=== PATIENT | female | born 1975 | race Caucasian/White ===

== ENCOUNTER 2017-06-28 10:08 | Outpatient (CLI) | payer BC, SELFPAY ==
--- NOTE | 2017-06-28 11:34 | CT ---
CT OF THE ABDOMEN AND PELVIS WITHOUT CONTRAST: COMPARISON: None. HISTORY: Recurrent urinary tract infection and microscopic hematuria. Prior gastric sleeve procedure. TECHNIQUE: Multiple contiguous axial images were obtained in a CT of the abdomen and pelvis without contrast. C oronal reformats were performed. FINDINGS: The liver, gallbladder, kidneys, adrenal glands, spleen, and pancreas are unremarkable, although eval uation is limited without IV contrast. No free air, free fluid, or stranding changes are seen in the abdomen or pelvis. The large and small bowel are unremarkable. The appendix is normal. The patient is status post surg rosalba on the stomach. A tampon is seen within the vagina. The reproductive organs are otherwise unremarkable with a domina nt follicle on the left measuring 2.6 cm in greatest dimension. A small amount of air is seen within the urinary bladder which may be from recent instrumentation but could also be secondary to a urinar y tract infection. The osseous structures, visualized inferior thorax, and abdominal wall soft tissues are unremarkable. IMPRESSION: Air in the urinary bladder may be secondary to instrumentation or urinary tract infection. Correlate with history. POS: TABITHA
== END 2017-06-28 10:09 | disposition home or self-care (01) ==
LOC: CT 10:08
PROVIDERS: ATTEND Urology
DX: N39.0 Urinary tract infection, site not specified (principal); R31.29 Other microscopic hematuria
CPT/HCPCS: 74176

== ENCOUNTER 2017-12-30 10:00 | Outpatient (CLI) | payer BC ==
[2017-12-30 11:30] LABS: Hemoglobin 13.4 g/dL (12.0-16.0); Mean Corpuscular HGB CONC 32.8 g/dL (32.0-36.0); Mean Corpuscular Hemoglobin 30.1 pg (27.0-31.0); Mean Corpuscular Volume 91.8 fL (78.0-98.0); Mean Platelet Volume 8.7 fL (7.4-10.4); Platelet Count 217 thou/uL (130-400); RBC Distribution Width 11.7 % (11.5-14.5); Red Blood Cell (RBC) Count 4.46 mill/uL (4.20-5.40); White Blood Cell (WBC) Count 6.9 thou/uL (4.8-10.8)
[2017-12-30 11:32] LABS: INR-International Normal Ratio 0.9; Prothrombin Time 12.4 SEC (12.0-14.7)
[2017-12-30 11:33] LABS: PTT 29.3 SEC (22.9-36.1)
[2017-12-30 11:44] LABS: Bilirubin Negative (Negative); Blood, Urine Negative (Negative); Clarity CLEAR (Clear); Glucose, Urine (Dipstick) Negative (Negative); Leukocyte Negative (Negative); Nitrite Negative (Negative); Protein, Urine (Dipstick) Negative (Neg-Trace); Specific Gravity, Urine 1.006 (1.002-1.036); Urobilinogen 0.2 mg/dL (0.2-1.0)
[2017-12-30 11:51] LABS: Anion Gap 9 mmol/L (10-20); BUN (Urea Nitrogen) 14 mg/dL (7.0-18.7); Calc. Creatinine Clearance 0 mL/min (70-130); Calcium 9.1 mg/dL (7.8-10.44); Carbon Dioxide 28 mmol/L (22-29); Chloride 104 mmol/L (98-107); Estimated GFR-MDRD 78; Glucose 79 mg/dL (70-105); Potassium 3.6 mmol/L (3.5-5.1); Sodium 137 mmol/L (136-145)
[2017-12-30 11:59] LABS: Bacteria/HPF None Seen HPF (None Seen); Hyaline Casts/LPF 0-3 HYALINE CAST LPF (0-3 Hyaline); RBC/HPF 0-3 HPF (0-3); Squamous Epithelial None Seen HPF (0-3); WBC/HPF None Seen HPF (0-3)
== END 2017-12-30 10:01 | disposition home or self-care (01) ==
LOC: LABBT 10:00
PROVIDERS: ATTEND Urology
DX: Z01.818 Encounter for other preprocedural examination (principal); N39.0 Urinary tract infection, site not specified; R31.29 Other microscopic hematuria
CPT/HCPCS: 80048; 81001; 85027; 85610; 85730; 87086; 93005; 93010

== ENCOUNTER 2018-01-19 06:50 | Day surgery (SDC) | payer BC ==
[2017-12-30 10:15] VITALS: BMI 27.2
[2018-01-19] MEDS ORDERED: diphenhydrAMINE 50 MG/ML VIAL ONE (07:35)
[2018-01-19] MEDS ORDERED: Hydrocortisone Sod Succ/PF 100 mg/2 ml Vial ONE (07:37)
[2018-01-19] MEDS ORDERED: Levofloxacin 500 mg/D5W 100 ml Premix Bag ONE (07:37)
[2018-01-19] MEDS ORDERED: Iothalamate Meglumine 60% 50 ML VIAL FS ONE ×2 (08:59→09:02)
[2018-01-19] MEDS ORDERED: HYDROmorphone 0.5 MG/0.5 ML SYRINGE ONE (09:04)
[2018-01-19] MEDS ORDERED: Midazolam HCl 2 mg/2 ml Vial ONE (09:05)
[2018-01-19] MEDS ORDERED: Ioversol 68 % 50 ML VIAL ONE (09:30)
[2018-01-19] MEDS ORDERED: Phenazopyridine HCl 97.5 MG TABLET ONE (10:35)
--- NOTE | 2018-01-19 11:20 | RAD ---
BILATERAL RETROGRADE PYELOGRAM: HISTORY: Recurrent urinary tract infection. Microscopic hematuria. FINDINGS: A total of 9 images are presented for interpretation. These show filling of nondilated collecting sy stems. No filling defects are seen in either ureter or collecting system. IMPRESSION: Unremarkable bilateral retrograde pyelogram. POS: TPC
--- NOTE | 2018-01-19 13:06 | OP ---
PREOPERATIVE DIAGNOSES: 1. A 42-year-old female, with history of recurrent urinary tract infection. 2. History of urge incontinence. 3. History of microscopic hematuria. 4. Remote history of urinary retention requiring CIC's POSTOPERATIVE DIAGNOSES: 1. A 42-year-old female, with history of recurrent urinary tract infection. 2. History of urge incontinence. 3. History of microscopic hematuria. PROCEDURES PERFORMED: Cystoscopy, urethral calibration dilatation, bilateral retrograde pyelogram. SURGEON: Lorraine Hatch D.O. ANESTHESIA: LMA. COMPLICATIONS: None. DISPOSITION: To recovery room in stable condition. SPECIMEN: None. INTRAOPERATIVE FINDINGS: 1. Bladder grossly unremarkable. 2. Bilateral retrograde pyelogram without evidence of filling defect, prompt excretion of contrast. INDICATIONS FOR THE PROCEDURE AND HISTORY: Ms. Swift is a 42-year-old female , , with history of recurrent UTI, remote history of urinary retention requiring CICs for approximately 2 months. She has urge incontinence well controlled with VESIcare, presents today for microscopic hematuria, recurrent UTI workup. Due to severe allergies to IODINE, she underwent CT noncontrast, which demonstrated unremarkable kidneys. CT was performed at the time of UTI, where there were small air within the bladder. There is no adjacent inflammatory bowel component suspicious for colovesical fistula. She presents today for exam under anesthesia per patient's request as she has had significant discomfort with prior catheterization. DESCRIPTION OF THE PROCEDURE: After an informed consent is signed, the patient was taken to the operating room, placed in a dorsal lithotomy position with the genital area prepped and draped in the usual surgical sterile fashion. A 21- Tunisian cystoscope was utilized. Bilateral SAHARA hose, SCDs, and broad-spectrum antibiotics were provided. The 21-Tunisian cystoscope was able to be passed without difficulty. The bladder was inspected with a 30 and a 70 degree lens, which demonstrated no evidence of mucosal abnormality, tumor, diverticulum, or any areas concerning for occult fistula. The UO's are identified in normal anatomical location with clear efflux of urine. A 5-Tunisian open-ended catheter was utilized for retrograde pyelogram using 1:1 diluted Optiray due to a contrast allergy. This demonstrated no evidence of filling defect or hydronephrosis. She had prompt excretion of contrast. Bladder was completely emptied and she tolerated the procedure well. I did calibrate her urethra. She has a history of urinary retention, incomplete void, urethral calibration performed, which did not demonstrate any evidence of stenosis. She was calibrated to 20 Tunisian with ease, dilated to 28 Tunisian without any significant issues. She is discharged with refill on her VESIcare 5 mg one p.o. daily, #30 with 3 refills, Macrobid for a course of 3 days, AZO p.r.n. for dysuria. She has an elective followup with me. SULY
[2018-01-19] MEDS ORDERED: Lidocaine 1% PF 5 ML VIAL ONE (13:10)
[2018-01-19] MEDS ORDERED: Ondansetron PF 4 MG/2 ML Vial ONE (13:10)
[2018-01-19] MEDS ORDERED: PROPOFOL 200 MG/20 ML VIAL ONE (13:10)
[2018-01-19] MEDS ORDERED: PHENYLEPHRINE-NS 100 MCG/ML 10 ML SYRINGE ONE (13:10)
[2018-01-19] MEDS ORDERED: Dexamethasone 20 MG/5 ML VIAL ONE (13:10)
== END 2018-01-19 11:55 | disposition home or self-care (01) ==
LOC: SDC 06:50
PROVIDERS: ATTEND Urology
PROC: BT14YZZ Fluoroscopy of Kidneys, Ureters and Bladder using Other Contrast (ICD-10-PCS; principal; 2018-01-19)
DX: N39.0 Urinary tract infection, site not specified (principal); R39.15 Urgency of urination; R31.29 Other microscopic hematuria; R39.198 Other difficulties with micturition; J45.909 Unspecified asthma, uncomplicated; F41.9 Anxiety disorder, unspecified; M79.7 Fibromyalgia; J18.9 Pneumonia, unspecified organism; Z91.041 Radiographic dye allergy status; K59.00 Constipation, unspecified; Z79.52 Long term (current) use of systemic steroids; Z88.2 Allergy status to sulfonamides; Z88.5 Allergy status to narcotic agent; Z79.899 Other long term (current) drug therapy; Z87.898 Personal history of other specified conditions
CPT/HCPCS: 74420; C1758; C1769; J1100; J1170; J1200; J1720; J1956; J2001; J2250; J2405; J2704; Q9961; Q9967

== ENCOUNTER 2022-07-14 12:16 | Outpatient (CLI) | payer BC | END 2022-07-14 12:17 | disposition home or self-care (01) | LOC: RAD 12:16 | PROVIDERS: ATTEND Neurological Surgery | DX: M47.26 Other spondylosis with radiculopathy, lumbar region (principal) | CPT/HCPCS: 72120 ==

== ENCOUNTER 2022-08-25 09:36 | Outpatient (CLI) | payer BC | END 2022-08-25 09:37 | disposition home or self-care (01) | LOC: ULT 09:36 | DX: R10.10 Upper abdominal pain, unspecified (principal) | CPT/HCPCS: 76705 ==